=== PATIENT | male | born 1930 | race Caucasian/White ===

== ENCOUNTER 2017-04-18 10:08 | Emergency (ER) | payer MEDICARE, MEDICAID ==
[2017-04-18 10:54] LABS: #Eosinphils 0.1 thou/uL (0.0-0.7); #Monocytes 0.4 thou/uL (0.11-0.59); #Neutrophils 3.8 thou/uL (1.40-6.50); %Basophils 0.4 % (0.0-1.0); %Eosinophils 2.3 % (0.0-10.0); %Monocytes 6.3 % (0.0-10.0); Hematocrit 39.2 % (42.0-52.0); Mean Platelet Volume 7.9 fL (7.4-10.4); Red Blood Cell (RBC) Count 3.95 mill/uL (4.70-6.10); White Blood Cell (WBC) Count 6.3 thou/uL (4.8-10.8)
[2017-04-18 11:00] LABS: Prothrombin Time 14.3 SEC (12.0-14.7)
[2017-04-18 11:01] LABS: PTT 33.8 SEC (22.9-36.1)
--- NOTE | 2017-04-18 11:14 | RAD ---
PORTABLE CHEST: DATE: 04/18/17. PROVIDED CLINICAL HISTORY: Altered mental status. FINDINGS: No comparisons. The cardiac silhouette appears enlarged, which may be at least partially on the basi s of portable technique. Emphysematous changes are suspected. No definite focal consolidation, pleu ral fluid, or pneumothorax apparent. IMPRESSION: No evidence for an acute cardiopulmonary process. POS: OFF
[2017-04-18 11:17] LABS: ALT (SGPT) 11 U/L (8-55); AST (SGOT) 14 U/L (5-34); Alkaline Phosphatase 77 U/L (40-150); Anion Gap 10 mmol/L (10-20); BUN (Urea Nitrogen) 14 mg/dL (8.4-25.7); Bilirubin, Total 0.5 mg/dL (0.2-1.2); CK (CPK) 67 U/L (30-200); Calc. Creatinine Clearance 0 mL/min (70-130); Calcium 8.3 mg/dL (7.8-10.44); Carbon Dioxide 24 mmol/L (23-31); Chloride 109 mmol/L (98-107); Estimated GFR-MDRD 61; Globulin 2.7 g/dL (2.4-3.5); Lipase 27 U/L (8-78); Protein, Total 5.8 g/dL (5.8-8.1)
[2017-04-18 11:22] LABS: Troponin I 0.011 ng/mL (< 0.028)
== END 2017-04-18 12:09 | disposition home or self-care (01) ==
LOC: ERS 10:08
DX: R41.82 Altered mental status, unspecified (principal); G30.9 Alzheimer's disease, unspecified; F02.80 Dementia in other diseases classified elsewhere, unspecified severity, without behavioral disturbance, psychotic disturbance, mood disturbance, and anxiety; G51.0 Bell's palsy; F32.9 Major depressive disorder, single episode, unspecified; I10 Essential (primary) hypertension; Z79.899 Other long term (current) drug therapy
CPT/HCPCS: 36415; 71010; 80053; 82140; 82553; 83690; 83880; 84146; 84443; 84484; 85025; 85610; 85730; 93005